=== PATIENT | female | born 1990 | race Caucasian/White ===

== ENCOUNTER 2022-05-19 08:19 | Outpatient (CLI) | payer BC, SELFPAY ==
--- NOTE | ~2022-05-19 | US_ITS ---
EXAMINATION: US thyroid DATE: 05/19/2022 08:44 INDICATION: Hypothyroidism. Goiter. TECHNIQUE: Multiple ultrasound images of the thyroid were obtained. COMPARISON: Ultrasound 11/20/2010 FINDINGS: The right thyroid lobe measures 3.5 x 1.2 x 1.3 cm. The left thyroid lobe measures 3.0 x 1.1 x 0.9 c m. The thyroid demonstrates heterogeneous echogenicity. Vascularity is increased. No discrete nodule . IMPRESSION: 1. Heterogeneous, hypervascular thyroid, likely chronic lymphocytic (Yuko) thyroiditis. Reviewed, dictated and finalized at location A.
== END 2022-05-19 08:20 | disposition home or self-care (01) ==
LOC: CHSIMG 08:23
PROVIDERS: PCP Internal Medicine; Visit Provider Nurse Practitioner Family
DX: E03.9 Hypothyroidism, unspecified (principal); E04.9 Nontoxic goiter, unspecified
CPT/HCPCS: 76536

== ENCOUNTER 2025-02-22 07:43 | Outpatient (CLI) | payer SELFPAY ==
--- OUTSIDE RECORDS SUMMARY | 2025-02-22 07:47 | XMS_ITS | Clinical Summary ---
Author Organization [facility] Address [facility] [place] [address] Care Team Providers Care Commercial Loan Assistant Name Role Phone Unavailable Primary Care Provider Unavailabl e Social History Tobacco Use Types Packs/Day Years Used Date Smoking Tobacco: Never Assessed Comments Unknown Sex and Gender Information Value Date Recorded Sex Assigned at Not on file Legal Sex Female 9:52 PM CDT Gender Identity Not on file Sexual Orientation Not on file Plan of Treatment Health Maintenance Due Date Last Done Comments Cervical Cancer Screening Pa p Smear (Age 30 to 64) Every 3 Years 1988 Annual Physical 1991 Hepatitis C 2006 DTaP, Tdap and Td Vaccines ( 1 - Tdap) 2007 Hepatitis B Vaccines (1 of 3 - 19+ 3-dose series) 2007 Cervical Cancer Screening Pa p with HPV Testing (Age 30 to 64) Every 5 Years 2018 Cervical Cancer Screening with HPV 2018 COVID-19 Vaccine ( - 2023-2 5 season) 2024 HPV Vaccines Aged Out No longer eligi ble based on patient's age to complete this topic Meningococcal B Vaccine Aged Out No l onger eligible based on patient's age to complete this topic Meningococcal Vaccine Aged Out No vincenzo tad eligible based on patient's age to complete this topic Pneumococcal Vaccine: Pediat rics (0 to 5 Years) and At-Risk Patients (6 to 49 Years) Aged Out No longer eligible b ased on patient's age to complete this topic RSV Immunizations Under 20 Months Aged Out No longer eligible based on patient's age to complete this topic
--- OUTSIDE RECORDS SUMMARY | 2025-02-22 07:47 | XMS_ITS | Referral Summary ---
Author Organization [address] Address [address] [place] [id number] Care Team Providers Care Matte Cutter Name Role Phone Mychal Tabor MD Primary Care Provider Allergies No known active allergies Medications Tri-Sprintec, 28, 0.18/0.215/0.25 mg-35 mcg (28) per tablet 08/19/19 22 Active Dexcom G6 Master Black Belt misc USE DIRECTED 1 each 5 07/20/20 22 Active insulin degludec (TRESIBA) 100 unit/mL (3 mL) pen for injectionIndicatio ns:type 1 diabetes mellitus Inject 0.2 mL (20 Units total) under the skin 2 (two) times a day 45 mL 3 06/07/20 23 Active pen needle, diabetic (Pen Needle) 31 gauge x 5/16 needleIndications: Type 1 diabetes mellitus with hyperglycemia (HCC) Use to inject 4 times daily as directed 300 each 3 07/28/20 23 Active Dexcom G6 Sensor deviceIndications: Type 1 diabetes mellitus with hyperglycemia (HCC) CHANGE SENSOR EVERY 10 DAYS 10 each 3 08/23/19 24 Active Dexcom G6 Transmitter deviceIndications: Type 1 diabetes mellitus with hyperglycemia (HCC) CHANGE EVERY 90 DAYS 1 each 3 08/23/19 24 Active SEMGLEE-yfgn 100 unit/mL vial for injection Inject 20 units in morning & 25 units at bedtime 45 mL 1 02/07/20 24 Active insulin lispro (HumaLOG, ADMELOG) 100 unit/mL pen for injectionIndicatio ns:Type 1 diabetes mellitus with hyperglycemia (HCC) INJECT 4-10 UNITS BEFORE MEALS 15 mL 6 03/20/20 24 Active levothyroxine (SYNTHROID) 112 mcg tabletIndications: Acquired hypothyroidism Take 1 tablet by mouth daily. 90 tablet 3 08/09/19 25 Active SEMGLEE-yfgn 100 unit/mL (3 mL) pen for injectionIndicatio ns:Type 1 diabetes mellitus with hyperglycemia (HCC) Inject 20 units under the skin in the morning and 25 units at bedtime. 45 mL 3 01/22/20 25 Active insulin glargine (BASAGLAR) 100 unit/mL (3 mL) pen for injectionIndicatio ns:Type 1 diabetes mellitus with hyperglycemia (HCC) Inject 20 Units under the skin 2 (two) times a day 20 units in the AM and 20 units in the PM 15 mL 11 03/03/20 23 023 Discontinued Active Problems Problem Noted Date Diagnosed Date Diabetes mellitus type 1 10/05/2021 Assessment & Plan (08/30/2023 2:42 PM ADJUNCT [facility] DEPARTMENT): Hba1c was Lab Results Component Value Date HGBA1C 8.2 08/30/2023 today, indicating inadequate DM control Goal Hba1c under 7 and blood glucose level in the 120-160 range was explained Low carb diet and daily aerobic and /or resistant exercise were advised Prevention and treatment of hyypoglcyemia were discussed with the patient Blood glucose monitoring : DEXCOM Adjustment to medications: Ozempic, 0.25 mg weekly. Samples provided Continue Lantus and Humalog , same dose. Assessment & Plan (06/07/2023 2:17 PM CDT): Chronic problem, uncontrolled. A1c decreased from 8.8% 02/2023 to now 8.1%. Current medications: Semglee 20 units in morning & 20 units in evening. Novolog 6 units before meals: For blood sugars over 180: take 7 units For blood sugars over 250: take 8 units For blood sugars over 300: take 9 units Will update labs. Verified that she uses [employer] Aware to check results/results letter in [employer] Will contact by phone if needed. Due for DM eye exam. 3rd request letter sent to [facility]. Strive for regular exercise (30min most days) and diet (get at least 4-5 servings of fruit and veggies daily, avoid processed foods, increase lean protein intake and decrease carb portions as well as fruit juices, regular soda & desserts). Watch carbs and simple sugars. Check the feet daily for skin breakdown and infection. Assessment & Plan (02/28/2023 2:41 PM CDT): Chronic problem, uncontrolled. A1c loli from 8.6% 11/2022 to now 8.8%. Will trial ozempic 0.25mg weekly x 4 weeks then increase to 0.5mg weekly. Current medications: Semglee 20 units in morning & 20 units in evening. Novolog 6 units before meals: For blood sugars over 180: take 7 units For blood sugars over 250: take 8 units For blood sugars over 300: take 9 units UTD on labs. Due for DM eye exam. 2nd request letter sent to [facility]. Strive for regular exercise (30min most days) and diet (get at least 4-5 servings of fruit and veggies daily, avoid processed foods, increase lean protein intake and decrease carb portions as well as fruit juices, regular soda & desserts). Watch carbs and simple sugars. Check the feet daily for skin breakdown and infection. Assessment & Plan (11/25/2022 2:42 PM CDT): Chronic problem. Not at goal. Reviewed dexcom download with Mrs Alex. Current medications: Semglee 20 units in morning & 15 units in evening. Novolog 6 units before meals: For blood sugars over 180: take 7 units For blood sugars over 250: take 8 units For blood sugars over 300: take 9 units Assessment & Plan (06/08/2022 4:19 PM CDT): Hba1c was Lab Results Component Value Date HGBA1C 8.8 06/08/2022 today, indicating inadequate DM control Goal Hba1c and blood glucose explained Diet and exercise were advised Prevention and treatment of hyypoglcyemia were discussed with the patient Blood glucose monitoring : DEXCOM Adjustment to medications: Split the Semglee , take 15 units before bedtime and take 15 units in the morning Take Novolog, 6 units before each meals. For sugars over 180, take 7 units For sugars over 250, take 8 units For sugars over 300, take 9 units Consider insulin pump Assessment & Plan (01/12/2022 4:11 PM CDT): Hba1c was Lab Results Component Value Date HGBA1C 8.8 01/12/2022 today, indicating inadequate DM control but improved Goal Hba1c and blood glucose explained Diet and exercise were advised Prevention and treatment of hyypoglcyemia were discussed with the patient Blood glucose monitoring : DEXCOM Adjustment to medications: Move Lantus, to 40 units at bedtime I advised the patient to continue using her current schedule for Humalog and to take also bedtime correction scale, adding 1 unit for every 40 points glucose over 160 Importance of diet and exercise also was discussed The patient will benefit from a closed loop insulin delivery system but she declines Assessment & Plan (10/06/2021 11:10 AM ADJUNCT FACULTY MATHEMATICS DEPARTMENT): Hba1c was Lab Results Component Value Date HGBA1C 10.1 10/06/2021 today, indicating poor DM control Goal Hba1c and blood glucose explained Diet and exercise were advised Advised on avoiding concentrated sweets No more than 45-60 grams of carbs per meal Prevention and treatment of hyypoglcyemia were discussed with the patient Blood glucose monitoring : would strongly recommend CGM, pt very reluctant. She has agreed on trying Freestyle Cori Adjustment to medications: Check your sugars before each meal and bedtime Take Lantus, 40 units at night. Wei Novopenelope, based on carb and blood sugars as follows: Take one unit per 10 grams of carbs and add one unit per every 40 point over 120 E.g for sugars over 160 + 1 units Over 200, + 2 units Over 240 + 3 units Over 280 + 4 units Over 320 + 5 units Pt would benefit form a insulin pump, closed loop system, but pt declines. Hypothyroidism 10/05/2021 Assessment & Plan (08/30/2023 2:42 PM ADJUNCT FAC[employer]Y MATHEMATICS DEPARTMENT): Chronic, well controlled Contineu Levothyroxine, 112 mcg daily Assessment & Plan (06/07/2023 2:18 PM CDT): Chronic problem. Currently taking levothyroxine 112mcg daily. TFTs WNL 11/2022. No changes at this time. Assessment & Plan (02/28/2023 2:23 PM CDT): Chronic problem. Currently taking levothyroxine 112mcg daily. TFTs WNL 11/2022. No changes at this time. Assessment & Plan (11/25/2022 2:39 PM CDT): Chronic problem. Currently taking levothyroxine 112mcg daily. Will update TFTs today. Verified that she uses [employer]. Aware to check results/results letter in [employer] Will contact by phone if needed. Assessment & Plan (06/08/2022 4:20 PM CDT): Will get report of labs recently Adjust dose of LT4 accordingly Social History Tobacco Use Types Packs/Day Years Used Date Smoking Tobacco: Never Smokeless Tobacco: Never PHQ-2 Answer Date Recorded PHQ-2 Total Score (If total score is 3 or more points, staff should administer the PHQ-9) 0 06/08/2022 Personal Safety Answer Date Recorded Getting School Help Needed Not on file 07/28 Comments Unknown Sex and Gender Information Value Date Recorded Sex Assigned at Not on file Legal Sex Female 9:50 AM ADJ[facility]CT [facility] [employer] DEPARTMENT Gender Identity Not on file Sexual Orientation Not on file Last Filed Vital Signs Vital Sign Reading Time Taken Comments Blood Pressure 120/70 08/30/2023 2:00 PM [facility]CT [facility] [employer] DEPARTMENT Pulse 91 08/30/2023 2:00 PM [facility]CT [facility]HE[employer] DEPARTMENT Temperature - - Respiratory Rate 19 08/30/2023 2:00 PM [facility]JUNCT [facility]AC[employer]Y [employer]HEMATICS DEPARTMENT Oxygen Saturation - - Inhaled Oxygen Concentration - - Weight 70.9 kg (156 lb 3.2 oz) 08/30/2023 2:00 P M [facility] [employer] DEPARTMENT Height 158.8 cm (5' 2.52) 08/30/2023 2:00 PM CS T Body Mass Index 28.1 08/30/2023 2:00 PM [facility]JUNCT [facility]AC[employer]HE[employer] DEPARTMENT Plan of Treatment Not on file Procedures Procedure Name Priority Date/Time Associated Diagnosis Comments POCT HEMOGLOBIN A1C Routine 08/30/2023 2 :05 PM [facility]CT [facility] [employer] DEPARTMENT Type 1 diabetes mellitus with hyperglycemia (HCC) EGFR Routine 08/23/2023 10:21 AM ADJUNCT [facility]AC[employer]Y [employer]HE[employer] DEPARTMENT Type 1 diabetes mellitus with hyperglycemia (HCC) LIPID PANEL Routine 08/23/2023 10:21 AM ADJUNCT [facility] [employer] DEPARTMENT Type 1 diabetes mellitus with hyperglycemia (HCC) ALBUMIN CREATININE RATIO, URINE Routine 08/23/2023 10:21 AM ADJUNCT [facility]AC[facility]Y MATHEMATICS DEPARTMENT Type 1 diabetes mellitus with hyperglycemia (HCC) TSH Routine 08/23/2023 10:21 AM ADJUNCT [facility]AC[facility]Y MATHEMATICS DEPARTMENT Fatigue, unspecified type Acquired hypothyroidism from Last 3 Months or Most Recently Relevant to Health Maintenance Results * (ABNORMAL) POCT hemoglobin A1c (08/30/2023 2:05 PM ADJUNCT FAC[employer]Y MATHEMATICS DEPARTMENT) Hemoglobin A1C, POC 8.2 % Blood spot 08/30/2023 2:05 PM ADJUNCT [facility]AC[employer]Y MATHEMATICS DEPARTMENT us Pricila Hollingsworth MD POINT OF CARE TEST ORDERABLES Fi nal Result * eGFR (08/23/2023 10:21 AM ADJUNCT FACULTY MATHEMATICS DEPARTMENT) eGFR 117 mL/min/1. 73 m2 [facility] Comment: Interpretive Data Reference Interval Normal >/= 90 mL/min/1.73m2 Mildly decreased* 60 - 89 mL/min/1.73m2 Mildly to moderately decreased 45 - 59 mL/min/1.73m2 Moderately to severely decreased 30 - 44 mL/min/1.73m2 Severely decreased 15 - 29 mL/min/1.73m2 Kidney Failure < 15 mL/min/1.73m2 *Relative to young adult level Estimated glomerular filtration rate is determined by the 2020 CKD-EPI equation recommended by the National Kidney Foundation (A Unifying Approach to GFR Estimation: Recommendations of the NKF-ASK Task Force on Reassessing the Inclusion of Race in Diagnosing Kidney Disease, JASN 2020). The CKD-EPI equation should not be used for patients with unstable renal function and has not been validated in children and those over 70. Current interpretive data was last reviewed 2021. Blood 08/23/2023 10:2 1 AM ADJUNCT [facility] [employer]HE[employer] DEPARTMENT 08/23/2023 3:24 PM ADJUNCT FACULTY MATHEMATICS DEPARTMENT us Laly Espinosa NP LAB BLOOD ORDERABLES Kaylin l Result [facility] [id number] [address] [place] [address] * Albumin Creatinine Ratio, Urine (08/23/2023 10:21 AM ADJUNCT FACULTY MATHEMATICS DEPARTMENT) Albumin Ur <12.0 mg/L [facility] Comment: Interpretive Data No reference range established. Current interpretive data was last revised 2018. Creatinine Ur 53.1 mg/dL [facility] Comment: Interpretive Data No reference range established. Current interpretive data was last revised 2018. Albumin Creatinine Ratio, Ur <23 1 - 29 mg/g [facility] Urine 08/23/2023 10:2 1 AM [facility]CT [facility]HE[employer] DEPARTMENT 08/23/2023 3:16 PM ADJUNCT FACULTY MATHEMATICS DEPARTMENT us Laly Espinosa [employer]OT LAB URINE ORDERABLES Kaylin l Result Performing Organization Address [facility] de Phone Number [facility] [id number] [address] [place] [address] * TSH (08/23/2023 10:21 AM ADJUNCT FACULTY MATHEMATICS DEPARTMENT) Thyroid Stimulating Hormone 0.88 0.30 - 4.20 mcIUnit/mL [facility] Blood 08/23/2023 10:2 1 AM ADJUNCT [facility]AC[facility]Y MATHEMATICS DEPARTMENT 08/23/2023 3:16 PM ADJUNCT FACULTY MATHEMATICS DEPARTMENT us Laly Espinosa [employer] LAB BLOOD ORDERABLES Kaylin l Result Performing Organization Address [facility] de Phone Number [facility] [id number] [address] [place] [address] * Lipid panel (08/23/2023 10:21 AM ADJUNCT FACULTY MATHEMATICS DEPARTMENT) Cholesterol 138 30 - 199 mg/dL [facility] Comment: Interpretive Data Ages < or = 19 years Acceptable: <170 mg/dL Borderline high: 170-199 mg/dL High: >or= 200 mg/dL Ages > or = 20 years Desirable: <200 mg/dL Borderline high: 200-239 mg/dL High: >or= 240 mg/dL Literature References: 1. Expert Panel on Integrated Guidelines for Cardiovascular Health and Risk Reduction in Children and Adolescents. Pediatrics 2011;128:S213 2. NCEP Expert Panel. Circulation 2004;110:227 Current Interpretive Data was last revised on 2018. Triglycerides 28 <=149 mg/dL [facility] Comment: Interpretive Data Ages < or = 9 years Acceptable: <75 mg/dL Borderline high: 75-99 mg/dL High: >or= 100 mg/dL Ages 10 to 20 years Acceptable: <90 mg/dL Borderline high: 90-129 mg/dL High: >or= 130 mg/dL Ages > or = 20 years Desirable: <150 mg/dL Borderline high: 150-199 mg/dL High: 200-499 mg/dL Very high: >or= 499 mg/dL Literature References: 1. Expert Panel on Integrated Guidelines for Cardiovascular Health and Risk Reduction in Children and Adolescents. Pediatrics 2011;128:S213 2. NCEP Expert Panel. Circulation 2004;110:227 Current Interpretive Data was last revised on 2018. HDL 79 >=40 mg/dL [facility] Comment: Interpretive Data Ages < or = 19 years Acceptable: >45 mg/dL Borderline low: 40-45 mg/dL Low: <40 mg/dL Ages > or = 20 years Desirable: >or= 60 mg/dL Low: <40 mg/dL Literature References: 1. Expert Panel on Integrated Guidelines for Cardiovascular Health and Risk Reduction in Children and Adolescents. Pediatrics 2011;128:S213 2. NCEP Expert Panel. Circulation 2003;110:227 Current Interpretive Data was last revised on 2018. LDL, calculated 53 <=129 mg/dL [facility] Comment: Interpretive Data Ages < or = 19 years Acceptable: <110 mg/dL Borderline high: 110-129 mg/dL High: >or= 130 mg/dL Ages > or = 20 years Optimal: <100 mg/dL Near optimal: 100-129 mg/dL Borderline high: 130-159 mg/dL High: >160 mg/dL Literature References: 1. Expert Panel on Integrated Guidelines for Cardiovascular Health and Risk Reduction in Children and Adolescents. Pediatrics 2011;128:S213 2. NCEP Expert Panel. Circulation 2004;110:227 Current Interpretive Data was last revised on 2018. Non-HDL Cholesterol 59 mg/dL [facility] Comment: Interpretive Data Ages < or = 19 years Acceptable: <120 mg/dL Borderline high: 120-144 mg/dL High: >145 mg/dL Ages > or = 20 years When triglycerides are >200 mg/dL, Non-HDL cholesterol is a secondary target of therapy with treatment goals that are 30 mg/dL greater than the LDL cholesterol target. Literature References: 1. Expert Panel on Integrated Guidelines for Cardiovascular Health and Risk Reduction in Children and Adolescents. Pediatrics 2011;128:S213 2. NCEP Expert Panel. Circulation 2004;110:227 Current Interpretive Data was last revised on 2018. Chol/HDL ratio 2 [facility] Blood 08/23/2023 10:2 1 AM ADJUNCT [facility]AC[employer]Y [facility]HE[employer]ICS DEPARTMENT 08/23/2023 3:16 PM ADJUNCT FACULTY MATHEMATICS DEPARTMENT us Laly Espinosa NP LAB BLOOD ORDERABLES Kaylin l Result [facility] [id number] [address] [place] [address] from Last 3 Months or Most Recently Relevant to Health Maintenance Insurance [facility] ADMIN [facility] [id number] [place] [id number] [employer] AD[employer] [facility] [id number] [place] [id number] Care Teams Matte Cutter Relationship Specialty Start Date End Date Mychal Tabor MD [address] [place] [address] PCP - General Internal Medicine 08/20/21
--- OUTSIDE RECORDS SUMMARY | 2025-02-22 07:47 | XMS_ITS | Clinical Summary ---
Author Organization [address] Address [address] [place] [id number] Care Team Providers Care Special Loan Officer Name Role Phone Mychal Tabor MD Primary Care Provider Allergies No known active allergies Medications Tri-Sprintec, 28, 0.18/0.215/0.25 mg-35 mcg (28) per tablet 08/19/19 22 Active Dexcom G6 Bath Tester misc USE DIRECTED 1 each 5 07/20/20 [...] 10/05/2021 Assessment & Plan (08/30/2023 2:42 PM BARGE WORKER): Hba1c was Lab Results Component Value Date [...] Will update labs. Verified that she uses [employer]. Aware to check results/results letter in [employer]. Will contact by phone if needed. Due for DM eye exam. 3rd request letter sent to [facility]. Strive for regular exercise (30min most days) [...] eye exam. 2nd request letter sent to [facility]. Strive for regular exercise (30min most days) [...] declines Assessment & Plan (10/06/2021 11:10 AM BARGE WORKER): Hba1c was Lab Results Component Value Date [...] 10/05/2021 Assessment & Plan (08/30/2023 2:42 PM BARGE WORKER): Chronic, well controlled Contineu Levothyroxine, 112 mcg [...] update TFTs today. Verified that she uses [facility]. Aware to check results/results letter in [employer]. Will contact by phone if needed. Assessment & Plan (06/08/2022 4:20 PM CDT): Will get report of labs recently Adjust dose of LT4 accordingly Surgical History Surgery Date Site/Laterality Comments SECTION Medical History Medical History Date Comments DM type 1 (diabetes mellitus, type 1) (HCC) Hypothyroidism Family History Medical History Relation Name Comments Hypertension Father Relation Name Status Comments Father Social History Tobacco Use Types Packs/Day Years [...] on file Legal Sex Female 9:50 AM BARGE WORKER Gender Identity Not on file Sexual Orientation Not on file Obstetrics History Last Filed Vital Signs Vital Sign Reading Time Taken Comments Blood Pressure 120/70 08/30/2023 2:00 PM BARGE WORKER Pulse 91 08/30/2023 2:00 PM BARGE WORKER Temperature - - Respiratory Rate 19 08/30/2023 2:00 PM BARGE WORKER Oxygen Saturation - - Inhaled Oxygen Concentration - - Weight 70.9 kg (156 lb 3.2 oz) 08/30/2023 2:00 P M BARGE WORKER Height 158.8 cm (5' 2.52) 08/30/2023 2:00 PM CS T Body Mass Index 28.1 08/30/2023 2:00 PM BARGE WORKER Plan of Treatment Health Maintenance Due Date Last Done Comments Cervical Cancer Screening 1988 Hepatitis C Screening 1988 Dilated Eye Exam 1998 Regular Well Visit/Exam 18-64 2006 Pneumococcal vaccine <65 (1 of 2 - PCV) 2007 DTaP/Tdap/Td Vaccine (7 - Td or Tdap) 06/08/2023 06/08/2013, 04/13/2002, 03/14/1992, Additional history exists Depression Screening 06/08/2023 06/08/2022, 01/13/20 22 Hemoglobin A1C 02/28/2024 08/30/2023, 10/08/2022, 02/28/2023, Additional history exists Foot Exam 02/29/2024 02/28/2023, 06/0 02/2022, 10/06/2021 Covid-19 Vaccine ( season) 2024 09/22/2021, 03/16/2021, 02/23/2021 Albumin Creatinine Ratio, Urine 08/23/2024 08/23/2023, 11/25/2022 Lipid Panel 08/23/2024 08/23/2023, 05/15/2022 TSH Level 08/23/2024 08/23/2023, 04/2 , 05/15/2022 eGFR 08/23/2024 08/23/2023, 05/15/2022 Influenza Vaccine (Season Ended) 2025 06/06/2014, 06/08/2013, 06/07/2012, Additional history exists Hepatitis B Screening Completed 10/10/1998 , 04/11/1998, 03/14/1998 Varicella Vaccines Completed 05/08/2002, 04/02/2002 HPV Vaccines Aged Out No longer eligi ble based on patient's age to complete this topic Procedures Procedure Name Priority Date/Time Associated Diagnosis Comments POCT HEMOGLOBIN A1C Routine 08/30/2023 2 :05 PM BARGE WORKER Type 1 diabetes mellitus with hyperglycemia (HCC) EGFR Routine 08/23/2023 10:21 AM BARGE WORKER Type 1 diabetes mellitus with hyperglycemia (HCC) LIPID PANEL Routine 08/23/2023 10:21 AM BARGE WORKER Type 1 diabetes mellitus with hyperglycemia (HCC) ALBUMIN CREATININE RATIO, URINE Routine 08/23/2023 10:21 AM BARGE WORKER Type 1 diabetes mellitus with hyperglycemia (HCC) TSH Routine 08/23/2023 10:21 AM BARGE WORKER Fatigue, unspecified type Acquired hypothyroidism from Last 3 Months or Most Recently Relevant to Health Maintenance Results * (ABNORMAL) POCT hemoglobin A1c (08/30/2023 2:05 PM BARGE WORKER) Hemoglobin A1C, POC 8.2 % Blood spot 08/30/2023 2:05 PM BARGE WORKER us Pricila Hollingsworth MD POINT OF CARE TEST ORDERABLES Fi nal Result * eGFR (08/23/2023 10:21 AM BARGE WORKER) eGFR 117 mL/min/1. 73 m2 [facility] [...] reviewed 2021. Blood 08/23/2023 10:2 1 AM BARGE WORKER 08/23/2023 3:24 PM BARGE WORKER us Laly Espinosa NP LAB BLOOD ORDERABLES Kaylin l Result [facility] [id number] [address] Department [place] [address] * Albumin Creatinine Ratio, Urine (08/23/2023 10:21 AM BARGE WORKER) Albumin Ur <12.0 mg/L [facility] Comment: Interpretive Data No reference range established. Current interpretive data was last revised 2018. Creatinine Ur 53.1 mg/dL [facility] Comment: Interpretive Data No reference range established. Current interpretive data was last revised 2018. Albumin Creatinine Ratio, Ur <23 1 - 29 mg/g [facility] Urine 08/23/2023 10:2 1 AM BARGE WORKER 08/23/2023 3:16 PM BARGE WORKER Laly Espinosa [employer] LAB URINE ORDERABLES Kaylin l Result Performing Organization Address [facility] Co de Phone Number [facility] [id number] [address] [place] [address] * TSH (08/23/2023 10:21 AM BARGE WORKER) Pathologist [facility] Thyroid Stimulating Hormone 0.88 0.30 - 4.20 mcIUnit/mL [facility] Blood 08/23/2023 10:2 1 AM BARGE WORKER 08/23/2023 3:16 PM BARGE WORKER Laly Espinosa [employer]PER[employer] LAB BLOOD ORDERABLES Kaylin l Result Performing Organization Address [facility] Co de Phone Number [facility] [id number] [address] [place] [address] * Lipid panel (08/23/2023 10:21 AM BARGE WORKER) Pathologist [facility] Cholesterol 138 30 - 199 mg/dL [facility] Comment: Interpretive Data Ages < or = [...] on 2018. HDL 79 >=40 mg/dL [facility] Comment: Interpretive Data Ages < [...] 2018. LDL, calculated 53 <=129 mg/dL [facility] Comment: Interpretive Data Ages < [...] on 2018. Non-HDL Cholesterol 59 mg/dL [facility] Comment: Interpretive Data Ages < [...] [facility] Blood 08/23/2023 10:2 1 AM BARGE WORKER 08/23/2023 3:16 PM BARGE WORKER us Laly Espinosa NP LAB BLOOD ORDERABLES Kaylin l Result [facility] [id number] [address] Department [place] [address] from Last 3 Months or Most Recently Relevant to Health Maintenance Insurance [employer] [facility] [id number] [place] [id number] [employer] [facility] [id number] [place] ANJU [id number] Care Teams Special Loan Officer Relationship Specialty Start Date End Date Mychal Tabor MD [address] [place] [address] PCP - General Internal Medicine 08/20/21
[2025-02-22 08:42] LABS: Hematocrit 41.8 % (35.0-49.0); Hemoglobin 13.4 g/dL (12.0-15.0); Mean Corpuscular HGB Conc 32.1 g/dL (32-36); Mean Corpuscular Hemoglobin 28.4 pg (27.0-31.0); Mean Corpuscular Volume 88.6 fL (78.0-102.0); Platelet Count Result 418 K/mm3 (150-420); Red Blood Count 4.72 M/mm3 (4.20-5.40); White Blood Count 9.2 K/mm3 (4.8-10.8)
[2025-02-22 08:54] LABS: Alanine Aminotransferase 21 U/L (6-35); Albumin Level 3.9 g/dL (3.5-5.1); Alkaline Phosphatase 82 U/L (38-126); Anion Gap 7 mmol/L (4-12); Aspartate Amino Transferase 29 U/L (14-36); Bilirubin,Total 0.5 mg/dL (0.2-1.3); Blood Urea Nitrogen 7 mg/dL (7-17); Calcium 8.7 mg/dL (8.4-10.2); Carbon Dioxide 23 mmol/L (22-30); Chloride 108 mmol/L (98-107); Cholesterol 154 mg/dL (0-200); Estimated Glomerular Filt Rate > 60; Glucose 220 mg/dL (65-110); HDL Direct 82 mg/dL; Osmolality Calculated 291 mOsm/kg (285-295); Potassium 4.2 mmol/L (3.4-5.0); Sodium 138 mmol/L (137-145); Total Protein 6.8 g/dL (6.3-8.2); Triglycerides 92 mg/dL (<150)
[2025-02-22 09:09] LABS: Free T4 Free Thyroxine 1.53 ng/dL (0.78-2.19)
[2025-02-22 09:23] LABS: Thyroid Stimulating Hormone 1.350 uIU/mL (0.465-4.680)
[2025-02-22 09:42] LABS: Vitamin B12 993.0 pg/mL (239-931)
[2025-02-26 07:09] LABS: Deamidated Gliadin Abs, IgA 6 units (0-19); Deamidated Gliadin Abs, IgG 3 units (0-19); Immunoglobulin A, Qn 174 mg/dL (87-352)
[2025-02-26 13:08] LABS: GAD-65 Antibody 28.4 U/mL (0.0-5.0)
== END 2025-02-22 07:44 | disposition home or self-care (01) ==
PROVIDERS: PCP Internal Medicine; Visit Provider Internal Medicine
DX: E10.9 Type 1 diabetes mellitus without complications (principal); E03.9 Hypothyroidism, unspecified
CPT/HCPCS: 36415; 80053; 80061; 82306; 82607; 82784; 84439; 84443; 84681; 85027; 86231; 86258; 86341; 86376